=== PATIENT | female | born 1985 | race African-American/Black ===

== ENCOUNTER 2021-01-17 11:51 | Emergency (ER) | payer OTHER, MEDICAID ==
[~2021-01-17] VITALS: Ht 165.1 cm; Wt 113.4 kg
[2021-01-17 13:06] VITALS: BP 138/93
== END 2021-01-17 13:07 | disposition home or self-care (01) ==
LOC: M.ERS 11:51
DX: B34.9 Viral infection, unspecified (principal); Z20.822 Contact with and (suspected) exposure to COVID-19; R19.7 Diarrhea, unspecified

== ENCOUNTER 2021-02-18 19:51 | Emergency (ER) | payer OTHER, MEDICAID ==
[~2021-02-18] VITALS: Ht 165.1 cm; Wt 115.7 kg
[2021-02-18 21:23] VITALS: BP 127/77
== END 2021-02-18 21:23 | disposition home or self-care (01) ==
LOC: M.ERS 19:51
DX: R05.9 Cough, unspecified (principal); Z20.822 Contact with and (suspected) exposure to COVID-19; R09.81 Nasal congestion; R06.02 Shortness of breath; J02.9 Acute pharyngitis, unspecified